=== PATIENT | male | born 1985 | race Caucasian/White ===

== ENCOUNTER 2016-09-01 07:55 | Emergency (ER) | payer BC ==
--- NOTE | 2016-09-01 08:27 | EDM.PDOC ---
ED HPI GENERAL MEDICAL PROBLEM - General Chief Complaint: ENT Problem Stated Complaint: LT EYE Time Seen by Provider: 09/01/16 08:15 Source of Information: Reports: Patient History Limitations: Reports: No Limitations - History of Present Illness INITIAL COMMENTS - FREE TEXT/NARRATIVE: Was seen in [place] and put on antibiotics on Monday and it continued to get worse and saw Dr. Smith on Monday and was switched to augmentin orally and tobrmycin/dexamethasone gtts and his eye has become worse. He is very light sensitive and feels that he has gravel in his eye. He is having difficulty with vision also. Not able to see more than shapes from the left eye. Is not able to open eye much due to the light sensitivity. When I was able to see it the eye is very red and inflammed. Onset: Gradual Onset Date: 08/26/16 Location: Reports: Other (eyes) Quality: Reports: Throbbing Severity: Severe Improves with: Reports: None Worsens with: Reports: Other (light) Left Eye Pain Score (Numeric/FACES): 7 - Related Data Allergies Allergy/AdvReac Type Severity Reaction Status Date / Time erythromycin base Allergy Cannot Verified 09/01/16 08:04 Remember Home Meds: Home Meds Amoxicillin/Clavulanate K [Augmentin 875 MG/125 MG] 1 tab PO Q12HR 09/01/16 [ History] Aspirin [Adult Low Dose Aspirin EC] 81 mg PO DAILY 09/01/16 [History] Cholecalciferol (Vitamin D3) [Vitamin D3] 5,000 unit PO DAILY 09/01/16 [History] Folic Acid [Folic Acid] 1 mg PO DAILY 09/01/16 [History] Tobramycin/Dexamethasone [Tobramycin-Dexameth Ophth Susp] 1 ml OP BID 09/01/16 [ History] Past Medical History - Past Surgical History GI Surgical History: Reports: Appendectomy, Hernia, Inguinal Musculoskeletal Surgical History: Reports: Other (See Below) (right hand) Social & Family History - Tobacco Use Smoking Status *Q: Current Every Day Smoker - Alcohol Use Alcohol Use Frequency: Daily ED ROS ENT - Review of Systems Review Of Systems: See Below Constitutional: Denies: Fever, Chills HEENT: Reports: Eye Discharge, Eye Pain Respiratory: Reports: No Symptoms Cardiovascular: Reports: No Symptoms ED EXAM, ENT - Physical Exam Exam: See Below Exam Limited By: No Limitations General Appearance: Alert, Moderate Distress Eye Exam: Right Eye: Normal Inspection (left eye is very red and inflammed and difficult to evaluate due to the pain when he opens it.) Nose: Normal Inspection Mouth/Throat: Normal Inspection, Normal Oropharynx Course - Vital Signs Last Recorded V/S: Last Vital Signs Temp 97.9 F 09/01/16 08:01 Pulse 85 09/01/16 08:01 Resp 16 09/01/16 08:01 BP 121/84 09/01/16 08:01 Pulse Ox 100 09/01/16 08:01 - Re-Assessments/Exams Free Text/Narrative Re-Assessment/Exam: 09/01/16 08:[address] oRmero's office who will see and evaluate him this AM as soon as he can get there. He is unable to drive so ride was arranged for him to get there. Departure - Departure Time of Disposition: 08:29 Disposition: Home, Self-Care 01 Condition: Fair Clinical Impression: Conjunctivitis Qualifiers: Conjunctivitis type: acute Acute conjunctivitis type: unspecified Laterality: left Qualified Code(s): H10.32 - Unspecified acute conjunctivitis, left eye - Discharge Information Forms: ED Department Discharge Additional Instructions: Go to Dr Cavanaugh office now to be evaluated.
== END 2016-09-01 08:40 | disposition home or self-care (01) ==
LOC: CC.ED 07:55
CPT/HCPCS: 99282

== ENCOUNTER 2024-06-22 03:37 | Emergency (ER) | payer BC ==
[2024-06-22 05:13] VITALS: BP 131/64; PULSE 97
== END 2024-06-22 04:35 | disposition critical access hospital (66) ==
LOC: CC.ED 03:37
DX: N50.812 Left testicular pain (principal); M19.90 Unspecified osteoarthritis, unspecified site; Z88.1 Allergy status to other antibiotic agents; Z79.899 Other long term (current) drug therapy; Z90.49 Acquired absence of other specified parts of digestive tract; X58.XXXA Exposure to other specified factors, initial encounter
CPT/HCPCS: 99284